=== PATIENT | female | born 1960 | race African-American/Black ===

== ENCOUNTER 2016-09-20 21:16 | Emergency (ER) | payer BC ==
[2015-09-25 00:05] VITALS: BP 149/69
[~2016-09-20] VITALS: Ht 167.6 cm; Wt 90.7 kg
[~2016-09-20 21:16] MED LIST: SULF1TAB24 PO
[2016-09-20] MEDS ORDERED: cefTRIAXone IM 1 GM VIAL IM ONE (21:45)
[2016-09-20] MEDS ORDERED: CEPH-264 PO (22:00)
--- NOTE | 2016-09-20 22:00 | PHYS DOC ---
Past Medical History Past Medical History: Diabetes-Type II, Hypertension Past Surgical History: No Surgical History Alcohol Use: None Drug Use: None Adult General Chief Complaint Chief Complaint: INSECT BITE HPI HPI Patient is a 56 year old female presenting to the emergency department for evaluation of lateral thigh insect bite she thinks by a wasp yesterday morning and now there is surrounding redness and erythema warmth and pain. She says that it itches intensely but she has not taken anything for pain or itching. She says that she takes metformin for diabetes but she denies any immune system issues. She says that she has been bitten by wasps in the past with similar outcome. Review of Systems Review of Systems Constitutional: Denies fever or chills [] GI: Denies abdominal pain, nausea, vomiting, bloody stools or diarrhea [] Musculoskeletal: Denies back pain or joint pain [] Integument: Positive skin lesion Neurologic: Denies headache, focal weakness or sensory changes [] Current Medications Current Medications Current Medications Medications (Trade) Dose Ordered Sig/Alba Start Time Stop Time Status Last Admin Dose Admin Ceftriaxone Sodium (Rocephin Im) 1 gm 1X ONCE 09/20/16 21:45 09/20/16 21:46 DC Allergies Allergies Allergies Uncoded Allergies Type Severity Reaction Last Updated Verified WASP Allergy Mild Swelling at site 09/20/16 Physical Exam Physical Exam Constitutional: Well developed, well nourished, no acute distress, non-toxic appearance. [] Cardiovascular:Heart rate regular rhythm, no murmur [] Lungs & Thorax: Bilateral breath sounds clear to auscultation [] Abdomen: Bowel sounds normal, soft, no tenderness, no masses, no pulsatile masses. [] Skin: Right upper lateral thigh with apparent bite wound and I cannot tell if there is a stinger in there or not but it does not appear to be. There is surrounding redness warmth or erythema but no induration. Area of erythema is approximately 15 x 15 cm. Neurologic: Alert and oriented X 3, normal motor function, normal sensory function, no focal deficits noted. [] Current Patient Data Vital Signs Vital Signs Date Time Temp Pulse Resp B/P (MAP) Pulse Ox O2 Delivery O2 Flow Rate FiO2 09/20/16 21:22 98.4 61 16 97 Room Air 98.4 EKG EKG [] Radiology/Procedures Radiology/Procedures Given I cannot tell for sure if there was a stinger I went ahead and did a cut over the bite wound and dissected first finger but there was not one present. Course & Med Decision Making Course & Med Decision Making Patient has a histamine reaction and likely secondary cellulitis from the bite wound. She was given a Rocephin shot here and will be sent home on Keflex and told to take NSAIDs and Benadryl. Patient aware and agreeable with plan and verbalized understanding of the need for one to 2 day PCP follow-up to ensure improvement and to come back to the ED sooner with any worsening pain fevers or other general concerns. Dragon Disclaimer Dragon Disclaimer This electronic medical record was generated, in whole or in part, using a voice recognition dictation system. Departure Departure Impression: Primary Impression: Wasp sting Additional Impression: Cellulitis Disposition: HOME, SELF-CARE Condition: GOOD Referrals: KEITH REAGAN MD (PCP) Patient Instructions: Cellulitis Additional Instructions: Take 400 mg of ibuprofen every 6 hours for the pain and swelling. Take 50 mg of Benadryl every 6 hours for the itching. If the redness swelling or pain is getting worse you need to come back to the emergency department otherwise be rechecked by her primary care provider in 2 days. Scripts Cephalexin (KEFLEX) 500 Mg Capsule 1 CAP PO TID, #21 CAP Prov: BLANKA MONTIEL DO 09/20/16 Problem Qualifiers Primary Impression: Wasp sting Encounter type: initial encounter Injury intent: accidental or unintentional Qualified Codes: T63.461A - Toxic effect of venom of wasps, accidental (unintentional), initial encounter BLANKA MONTIEL DO Sep 20, 2016 22:00
== END 2016-09-20 22:06 | disposition home or self-care (01) ==
LOC: ER 21:16
DX: T63.461A Toxic effect of venom of wasps, accidental (unintentional), initial encounter (principal); L03.116 Cellulitis of left lower limb; Z91.030 Bee allergy status; E11.9 Type 2 diabetes mellitus without complications; I10 Essential (primary) hypertension; Y92.89 Other specified places as the place of occurrence of the external cause
CPT/HCPCS: 96372; 99283; J0696

== ENCOUNTER 2020-08-11 14:44 | Emergency (ER) | payer SELFPAY ==
[~2020-08-11] VITALS: Ht 167.6 cm; Wt 81.0 kg
[~2020-08-11 14:44] MED LIST changes: +CEPH-264 PO
[2020-08-11 15:00] VITALS: BP 142/75
[2020-08-11] MEDS ORDERED: CETIRIZINE HCL 10 MG TABLET. PO STA (15:08)
[2020-08-11] MEDS ORDERED: FAMOTIDINE 20 MG TABLET. PO ONE (15:15)
[2020-08-11] MEDS ORDERED: methylPREDNISolone SOD SUCC PF 125 MG/2 ML VIAL. IM ONE (15:15)
--- NOTE | 2020-08-11 15:31 | PHYS DOC ---
Past Medical History Past Medical History: Diabetes-Type II, Hypertension Past Surgical History: No Surgical History Smoking Status: Never Smoker Alcohol Use: None Drug Use: None General Adult EDM: Chief Complaint: INSECT BITE HPI: HPI: Patient is a 60 year old female with history of diabetes type 2, hypertension, who presents to the ED today with an insect bite to the right ear. Patient states she believes she got stung by a wasp. She states she is allergic to wasp. Patient denies any anaphylactic reaction symptoms including throat or tongue swelling, difficulty breathing. She states she has had wasp sting before. Review of Systems: Review of Systems: Constitutional: Denies fever or chills. [] Eyes: Denies change in visual acuity. [] HENT: Reports wasp sting to the right ear. Denies nasal congestion or sore throat. [] Respiratory: Denies cough or shortness of breath. [] Cardiovascular: Denies chest pain or edema. [] GI: Denies abdominal pain, nausea, vomiting, bloody stools or diarrhea. [] : Denies dysuria. [] Musculoskeletal: Denies back pain or joint pain. [] Integument: Denies rash. [] Neurologic: Denies headache, focal weakness or sensory changes. [] Psychiatric: Denies depression or anxiety. [] Heart Score: C/O Chest Pain: N/A Risk Factors: Risk Factors: DM, Current or recent (<one month) smoker, HTN, HLP, family history of CAD, obesity. Risk Scores: Score 0 - 3: 2.5% MACE over next 6 weeks - Discharge Home Score 4 - 6: 20.3% MACE over next 6 weeks - Admit for Clinical Observation Score 7 - 10: 72.7% MACE over next 6 weeks - Early Invasive Strategies Current Medications: Current Medications Medications (Trade) Dose Ordered Sig/Alba Start Time Stop Time Status Last Admin Dose Admin Cetirizine HCl (ZyrTEC) 10 mg 1X STAT 08/11/20 15:08 08/11/20 15:13 DC Famotidine (Pepcid) 20 mg 1X ONCE 08/11/20 15:15 08/11/20 15:16 DC Methylprednisolone Sodium Succinate (SOLU-Medrol 125MG VIAL) 125 mg 1X ONCE 08/11/20 15:15 08/11/20 15:16 DC Allergies: Allergies: Allergies Coded Allergies Type Severity Reaction Last Updated Verified venom-wasp Allergy Intermediate SWELLING AT SITE 08/11/20 Yes Physical Exam: PE: Constitutional: Well developed, well nourished, no acute distress, non-toxic appearance. [] HENT: Normocephalic, atraumatic, bilateral external ears normal, oropharynx moist, no oral exudates, nose normal. [] Right external ear with mild swelling and redness consistent with an insect bite. There is slight swelling and redness noted on the exterior right jaw Eyes: PERRLA, EOMI, conjunctiva normal, no discharge. [] Neck: Normal range of motion, no tenderness, supple, no stridor. [] Cardiovascular:Heart rate regular rhythm, no murmur [] Lungs & Thorax: Bilateral breath sounds clear to auscultation [] Abdomen: Bowel sounds normal, soft, no tenderness, no masses, no pulsatile masses. [] Skin: Warm, dry, no erythema Back: No tenderness, no CVA tenderness. [] Extremities: No tenderness, no cyanosis, no clubbing, ROM intact, no edema. [] Neurologic: Alert and oriented X 3, normal motor function, normal sensory function, no focal deficits noted. [] Psychologic: Affect normal, judgement normal, mood normal. [] Current Patient Data: Vital Signs: Vital Signs Date Time Temp Pulse Resp B/P (MAP) Pulse Ox O2 Delivery O2 Flow Rate FiO2 08/11/20 15:00 98.6 90 16 142/75 (97) 98 Room Air 98.6 EKG: EKG: [] Radiology/Procedures: Radiology/Procedures: [] Course & Med Decision Making: Course & Med Decision Making Pertinent Labs and Imaging studies reviewed. (See chart for details) This is a 60-year-old female patient presenting to the ED today with what appears to be a wasp sting to the right ear. Right ear is swollen. No throat or tongue swelling. Patient drove herself to the ED. Was given Pepcid, Solu- Medrol, and Zyrtec. Discharged with prednisone Pepcid and Benadryl. Follow-up with PCP next week Nicole Disclaimer: Nicole Disclaimer: This electronic medical record was generated, in whole or in part, using a voice recognition dictation system. Departure Departure Impression: Primary Impression: Wasp sting Qualified Codes: T63.461A - Toxic effect of venom of wasps, accidental (unintentional), initial encounter Disposition: HOME / SELF CARE / HOMELESS Condition: STABLE Referrals: UNKNOWN PCP NAME (PCP) Follow-up with your doctor next week Patient Instructions: Bee, Wasp, or Hornet Sting Additional Instructions: You have a wasp sting to the right ear. Take the prescribed medications as ordered. Follow-up with your primary care doctor next week. Come back to the ED at any point symptoms worsen Scripts Diphenhydramine Hcl (BENADRYL) 25 Mg Capsule 1 CAP PO Q6HRS PRN for RASH, #30 CAP 0 Refills Prov: PRICILLA DÍAZ APRN 08/11/20 Famotidine (PEPCID) 20 Mg Tablet 20 MG PO DAILY, #7 TAB Prov: PRICILLA DÍAZ APRN 08/11/20 Prednisone (PREDNISONE) 50 Mg Tablet 1 TAB PO DAILY, #5 TAB Prov: PRICILLA DÍAZ APRN 08/11/20 PRICILLA DÍAZ APRN Aug 11, 2020 15:31
[2020-08-11] MEDS ORDERED: FAMO-63 PO (15:35)
[2020-08-11] MEDS ORDERED: PRED50TA PO (15:35)
[2020-08-11] MEDS ORDERED: DIPH25CA58 PO (15:35)
== END 2020-08-11 15:40 | disposition home or self-care (01) ==
LOC: ER 14:44
DX: T63.461A Toxic effect of venom of wasps, accidental (unintentional), initial encounter (principal); E11.9 Type 2 diabetes mellitus without complications; I10 Essential (primary) hypertension; Z91.038 Other insect allergy status; Y92.89 Other specified places as the place of occurrence of the external cause
CPT/HCPCS: 96372; 99283; J2930